=== PATIENT | male | born 1960 | race African-American/Black ===

== ENCOUNTER 2018-05-29 23:46 | Emergency (ER) | payer MEDICAID ==
[~2018-05-29] VITALS: Ht 180.3 cm; Wt 88.5 kg
[~2018-05-29 23:46] MED LIST: LEVE250T2
[2018-05-29 23:52] VITALS: BP 169/89
[2018-05-30] MEDS ORDERED: HYDROMORPHONE 1 MG/1 ML DISP.SYRIN ONE (00:10)
[2018-05-30] MEDS ORDERED: HYDROMORPHONE INJ 0.5 MG/0.5 ML SYRINGE IM ONE (00:30)
== END 2018-05-30 00:36 | disposition home or self-care (01) ==
LOC: ER 23:50
DX: G89.4 Chronic pain syndrome (principal); M48.061 Spinal stenosis, lumbar region without neurogenic claudication; Z88.6 Allergy status to analgesic agent; Z79.899 Other long term (current) drug therapy
CPT/HCPCS: 96372; 99283; J1170

== ENCOUNTER 2018-08-26 21:17 | Emergency (ER) | payer MEDICAID ==
[~2018-08-26] VITALS: Ht 180.3 cm; Wt 86.2 kg
[2018-08-26 22:37] VITALS: BP 173/109
[2018-08-27] MEDS ORDERED: oxyCODONE/APAP (5/325 MG) 1 UDTAB TABLET PO ONE
[2018-08-27] MEDS ORDERED: oxyCODONE/APAP (5/325 MG) 1 UDTAB TABLET ONE (00:02)
== END 2018-08-27 00:05 | disposition home or self-care (01) ==
LOC: ER 21:25
DX: G89.29 Other chronic pain (principal); M54.41 Lumbago with sciatica, right side; G40.909 Epilepsy, unspecified, not intractable, without status epilepticus; Z98.890 Other specified postprocedural states; Z88.6 Allergy status to analgesic agent